=== PATIENT | female | born 1945 | race Caucasian/White ===

== ENCOUNTER 2017-11-04 09:51 | Outpatient (CLI) | payer OTHER | END 2017-11-04 09:58 | disposition home or self-care (01) | LOC: MAMO-SONO 09:51 | DX: Z12.31 Encounter for screening mammogram for malignant neoplasm of breast (principal); Z87.898 Personal history of other specified conditions; N61.0 Mastitis without abscess ==

== ENCOUNTER 2018-01-19 07:20 | Outpatient (CLI) | payer OTHER | END 2018-01-19 08:08 | disposition home or self-care (01) | LOC: NUCLEAR 07:20 | DX: I20.8 Other forms of angina pectoris (principal); R06.09 Other forms of dyspnea; E11.9 Type 2 diabetes mellitus without complications | CPT/HCPCS: 78452; 93017; A9500; J0153 ==

== ENCOUNTER 2024-03-22 08:58 | Outpatient (CLI) | payer OTHER | END 2024-03-22 09:01 | disposition home or self-care (01) | LOC: EKG 08:58 | PROVIDERS: ATTEND Ophthalmology | DX: I10 Essential (primary) hypertension (principal) ==